=== PATIENT | male | born 1995 | race Caucasian/White ===

== ENCOUNTER 2022-03-17 08:24 | Emergency (ER) | payer BC | END 2022-03-17 10:00 | disposition home or self-care (01) | LOC: ER1 08:24 | DX: S01.111A Laceration without foreign body of right eyelid and periocular area, initial encounter (principal); Z23 Encounter for immunization; W22.8XXA Striking against or struck by other objects, initial encounter | CPT/HCPCS: 12011; 90471; 90714; 99283 ==